=== PATIENT | male | born 1980 | race Two or more races ===

== ENCOUNTER 2021-05-17 06:40 | Emergency (ER) | payer SELFPAY ==
[~2021-05-17] VITALS: Ht 162.6 cm; Wt 75.0 kg
[2021-05-17] MEDS ORDERED: KETOROLAC 15 MG/ML VIAL. IVP ONE (07:15)
[2021-05-17] MEDS ORDERED: METOCLOPRAMIDE HCL 10 MG/2 ML VIAL. IVP ONE (07:15)
[2021-05-17] MEDS ORDERED: diphenhydrAMINE 50 MG/ML VIAL IVP ONE (07:15)
[2021-05-17] MEDS ORDERED: IV NORMAL SALINE 1000ML BAG 1,000 ML IV ONE (07:15)
[2021-05-17] MEDS ORDERED: DEXAMETHASONE SOD PHOS 4 MG/ML VIAL IVP ONE (07:15)
--- NOTE | 2021-05-17 07:52 | RAD ---
EXAM: CT Head without IV contrast CLINICAL HISTORY: headache, dizziness COMPARISON: None. TECHNIQUE: Routine CT of the head without contrast. PQRS compliance statement - One or more of the following individualized dose reduction techniques wer e utilized for this study: 1. Automated exposure control 2. Adjustment of the mA and/or kV according to patient size 3. Use of iterative reconstruction technique FINDINGS: There is no evidence of hemorrhage, mass or extra-axial fluid collection. Neves-white differentiation is maintained with no evidence of edema. There is no mass effect or shift of the intracranial structures. The ventricles, basilar cisterns and cortical sulci are normal in size and configuration for the lizzy ents stated age. The cerebellum and brainstem are unremarkable. The calvarium demonstrates no evidence of fracture or focal lesion. Patchy ethmoid air cell opacification. Otherwise, there is normal aeration of the visualized paranasa l sinuses and mastoid air cells. The visualized portions of the orbits are normal. IMPRESSION: 1. No evidence for acute intracranial process. 2. Patchy ethmoid opacification consistent with sinus disease. Electronically signed by: Aneesh Daugherty MD (05/17/2021 7:49 AM) AVTAR
[2021-05-17 08:00] VITALS: BP 109/70
--- NOTE | 2021-05-17 08:06 | PHYS DOC ---
Past Medical History Past Surgical History: No Surgical History Smoking Status: Never Smoker Alcohol Use: None General Adult EDM: Chief Complaint: DIZZY/LIGHT HEADED HPI: HPI: Patient is a 41 year old [f__sex] who presents with [] Review of Systems: Review of Systems: Constitutional: Denies fever or chills Eyes: Denies redness or eye pain HENT: Denies nasal congestion or sore throat Respiratory: Denies cough or shortness of breath Cardiovascular: Denies chest pain or palpitations GI: Denies abdominal pain; reports nausea and vomiting : Denies dysuria or hematuria Musculoskeletal: Denies back pain or joint pain Integument: Denies rash or skin lesions Neurologic: Reports headache and dizziness Complete systems were reviewed and found to be within normal limits, except as documented in this note. Heart Score: C/O Chest Pain: N/A Current Medications: Current Medications Medications (Trade) Dose Ordered Sig/Ninfa Start Time Stop Time Status Last Admin Dose Admin Dexamethasone Sodium Phosphate (Decadron) 10 mg 1X ONCE 05/17/21 07:15 05/17/21 07:17 DC 05/17/21 07:31 4 MG Diphenhydramine HCl (Benadryl) 25 mg 1X ONCE 05/17/21 07:15 05/17/21 07:17 DC 05/17/21 07:30 25 MG Ketorolac Tromethamine (Toradol 15mg Vial) 15 mg 1X ONCE 05/17/21 07:15 05/17/21 07:17 DC 05/17/21 07:31 15 MG Metoclopramide HCl (Reglan Vial) 10 mg 1X ONCE 05/17/21 07:15 05/17/21 07:17 DC 05/17/21 07:29 10 MG Sodium Chloride 1,000 ml @ 1,000 mls/hr 1X ONCE 05/17/21 07:15 05/17/21 08:14 05/17/21 07:15 1,000 MLS/HR Allergies: Allergies: Allergies Coded Allergies Type Severity Reaction Last Updated Verified No Known Drug Allergies 05/17/21 No Physical Exam: PE: Constitutional: Well developed, well nourished, no acute distress, non-toxic appearance HENT: Normocephalic, atraumatic Eyes: PERRL, EOMI, conjunctiva normal, no discharge, no nystagmus Neck: Normal range of motion, bilateral paraspinal tenderness, no midline spinal tenderness, supple, no meningeal signs Lungs & Thorax: No respiratory distress, equal chest rise and fall Abdomen: Soft, no tenderness, no rebound tenderness/distention/guarding Skin: Warm, dry, no erythema, no rash Extremities: No tenderness, ROM intact, no edema Neurologic: Alert and oriented X 3, normal motor function, normal sensory function, no focal deficits noted Psychologic: Affect normal, judgment normal Current Patient Data: Vital Signs: Vital Signs Date Time Temp Pulse Resp B/P (MAP) Pulse Ox O2 Delivery O2 Flow Rate FiO2 05/17/21 06:50 98.5 77 18 136/88 (104) 98 Room Air 98.5 EKG: EKG: @0821 NSR at 70bpm, NO ST elevation, QRS 86ms, QT/QTc 374/407ms, J-point elevation noted to V2 Radiology/Procedures: Radiology/Procedures: PROCEDURE: CT HEAD WO CONTRAST EXAM: CT Head without IV contrast CLINICAL HISTORY: headache, dizziness COMPARISON: None. TECHNIQUE: Routine CT of the head without contrast. PQRS compliance statement - One or more of the following individualized dose reduction techniques were utilized for this study: 1. Automated exposure control 2. Adjustment of the mA and/or kV according to patient size 3. Use of iterative reconstruction technique FINDINGS: There is no evidence of hemorrhage, mass or extra-axial fluid collection. Neves-white differentiation is maintained with no evidence of edema. There is no mass effect or shift of the intracranial structures. The ventricles, basilar cisterns and cortical sulci are normal in size and con figuration for the patients stated age. The cerebellum and brainstem are unremarkable. The calvarium demonstrates no evidence of fracture or focal lesion. Patchy ethmoid air cell opacification. Otherwise, there is normal aeration of the visualized paranasal sinuses and mastoid air cells. The visualized portions of the orbits are normal. IMPRESSION: 1. No evidence for acute intracranial process. 2. Patchy ethmoid opacification consistent with sinus disease. Electronically signed by: Aneesh Daugherty MD (05/17/2021 7:49 AM) [facility] Course & Med Decision Making: Course & Med Decision Making Pertinent Labs and Imaging studies reviewed. (See chart for details) Patient presents with report of dizziness, headache, and nausea and vomiting since yesterday. Patient neurologically intact. Denies trauma. Patient is afebrile. Patient does have some paraspinal and suboccipital tenderness on palpation. CT head without acute process. Labs obtained and posted to chart. EKG stable. Symptoms more likely headache possibly migrainous in nature. Symptomatic treatment provided including IV fluid hydration. Patient with interval improvement of symptoms. Patient stable for discharge with outpatient follow-up with PCP/neurology. Taiwo rology referral provided. Discussed findings and plan with patient and family, who acknowledge understanding and agreement. Funmi Disclaimer: Funmi Disclaimer: This electronic medical record was generated, in whole or in part, using a voice recognition dictation system. Departure Departure Impression: Primary Impression: Headache Qualified Codes: R51.9 - Headache, unspecified Additional Impressions: Dizziness Neck pain Disposition: HOME / SELF CARE / HOMELESS Condition: STABLE Referrals: NO PCP (PCP) Patient Instructions: Dizziness, [id number], Headache, FAQs, Migraine Headache, [id number], Tension Headache, [id number] Additional Instructions: Increase fluid hydration. Take over the counter Tylenol and/or Ibuprofen for pain or discomfort. Scripts Ondansetron (ONDANSETRON ODT) 4 Mg Tab.rapdis 1 TAB PO PRN Q6-8HRS PRN for NAUSEA, #16 TAB Prov: PACO BRANTLEY DO 05/17/21 Butalb/Acetaminophen/Caffeine ([id number] 50-325-40) 1 Each Tablet 1 EACH PO Q6HRS PRN for HEADACHE, #14 TAB Prov: PACO BRANTLEY DO 05/17/21 Orphenadrine Citrate (ORPHENADRINE CITRATE) 100 Mg Tablet.er 100 MG PO BID PRN for MUSCLE PAIN, #14 TAB Prov: PACO BRANTLEY DO 05/17/21 PACO BRANTLEY DO May 17, 2021 08:06
[2021-05-17 08:14] LABS: BASO % 0 % (0-3); EOS # 0.1 x10^3/uL (0.0-0.7); EOS % 1 % (0-3); HEMATOCRIT 45.7 % (39.0-53.0); HEMOGLOBIN 15.4 g/dL (13.0-17.5); LYMPH # 1.7 x10^3/uL (1.0-4.8); LYMPH % 25 % (24-48); MEAN CORPUSCULAR HEMOGLOBIN 29 pg (25-35); MEAN CORPUSCULAR HGB CONC 34 g/dL (31-37); MEAN CORPUSCULAR VOLUME 87 fL (79-100); MONO # 0.3 x10^3/uL (0.0-1.1); MONO % 5 % (0-9); NEUT # 4.6 x10^3/uL (1.8-7.7); NEUT % 68 % (31-73); PLATELET COUNT 201 x10^3/uL (140-400); RED BLOOD COUNT 5.25 x10^6/uL (4.30-5.70); RED CELL DISTRIBUTION WIDTH 14.2 % (11.5-14.5); WHITE BLOOD COUNT 6.8 x10^3/uL (4.0-11.0)
[2021-05-17 08:25] LABS: CALCIUM 8.5 mg/dL (8.5-10.1); CREATININE 0.7 mg/dL (0.7-1.3); GFR 124.3; POTASSIUM 4.1 mmol/L (3.5-5.1)
[2021-05-17 08:31] LABS: ALBUMIN 3.9 g/dL (3.4-5.0); ALBUMIN/GLOBULIN RATIO 1.1 (1.0-1.7); MAGNESIUM 2.1 mg/dL (1.8-2.4); TOTAL BILIRUBIN 0.5 mg/dL (0.2-1.0); TOTAL PROTEIN 7.4 g/dL (6.4-8.2)
[2021-05-17] MEDS ORDERED: BUTA1TAB23 PO (08:56)
[2021-05-17] MEDS ORDERED: ONDA4TAB12 PO (08:56)
[2021-05-17] MEDS ORDERED: ORPH100T PO (08:56)
[2021-05-17] MEDS ORDERED: ORPHENADRINE CITRATE 60 MG/2 ML VIAL. IV ONE (09:00)
--- NOTE | 2021-05-17 16:54 | EKG ---
[facility] [address] [place] [id number] Test Date: 2021-05-17 Test Time: 08:21:00 Pat Name: ELVIRA HARKINS Department: Room: Gender: M [employer] Operator: [id number] : 1980 Requested By: PACO BRANTLEY Order Number: [id number] Reading MD: Kareem Hidalgo MD Measurements Intervals [place] Rate: 70 P: -23 PA: 128 QRS: 37 QRSD: 86 T: 28 QT: 374 QTc: 407 Interpretive Statements SINUS RHYTHM Electronically Signed On 05-19-2021 10:36:33 CDT by Kareem Hidalgo MD
== END 2021-05-17 09:11 | disposition home or self-care (01) ==
LOC: ER 06:40
DX: R51.9 Headache, unspecified (principal); R42 Dizziness and giddiness; M54.2 Cervicalgia; H53.8 Other visual disturbances; R11.0 Nausea
CPT/HCPCS: 36415; 70450; 80053; 82553; 83735; 84484; 85025; 93005; 96361; 96374; 96375; 99285; J1100; J1200; J1885; J2360; J2765; J7030